=== PATIENT | male | born 1965 | race Caucasian/White ===

== ENCOUNTER 2019-11-25 10:15 | Inpatient (IN) | payer OTHER ==
[2019-11-25 11:14] VITALS: BMI 24.9
--- NOTE | 2019-11-25 11:50 | HP ---
CIWA Score Nausea/Vomitin Muscle Tremors: 3 Anxiety: 3 Agitation: 3 Paroxysmal Sweats: 1-Minimal Palms Moist Orientation: 0-Oriented Tacttile Disturbances: 1-Very Mild Itch/Numbness Auditory Disturbances: 0-None Visual Disturbances: 0-None Headache: 2-Mild CIWA-Ar Total Score: 15 - Admission Criteria OASAS Guidelines: Admission for Medically Managed Detox: Requires at least one of the followin. CIWA greater than 12 2. Seizures within the past 24 hours 3. Delirium tremens within the past 24 hours 4. Hallucinations within the past 24 hours 5. Acute intervention needed for co occurring medical disorder 6. Acute intervention needed for co occurring psychiatric disorder 7. Severe withdrawal that cannot be handled at a lower level of care (continued vomiting, continued diarrhea, abnormal vital signs) requiring intravenous medication and/or fluids 8. 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 Musculoskeletal: Yes: Other (arthritis left knee sciatica left fell from height 3rd floor in 2914 fx both pelvis ,left elbow in 2014 [facility]) Additional Past Medical History: fell from height in 2004 sustained fx both pelvis,left elbow - Smoking History Smoking history: Never smoked - Alcohol/Substance Use Hx Alcohol Use: Yes - Social History Usual Living Arrangement: Yes: Other (homeless) ADL: Support Services Occupation: unemployed History of Recent Travel: No Admission ROS S - HPI Chief Complaint: i need help to stop drinking alcohol,cocaine and marijuana Allergies/Adverse Reactions: Allergies Allergy/AdvReac Type Severity Reaction Status Date / Time lactose AdvReac gas Verified 11/25/19 10:57 History of Present Illness: this 54 years old male with alcohol dependence,cocaine,marijuana dependence, seeking detox,withdrawal symptom, multiple admissions in detox last detox 09/18 [facility] syncope alcohol related no seizure no smoking fell from height third floor in 2014 sustained multiple fx both pelvis,left elbow longest period of sobriety 6 years weight loss neuropathy sciatica anxiety,insomnia, plan for rehab after detox Exam Limitations: No Limitations - Ebola screening Have you traveled outside of the country in the last 21 days: No Have you had contact with anyone from an Ebola affected area: No Do you have a fever: No - Review of Systems Constitutional: Loss of Appetite, Night Sweats, Changes in sleep, Weakness, Unintentional Wgt. Loss EENT: reports: Tearing, Nose Congestion Respiratory: reports: No Symptoms reported Cardiac: reports: No Symptoms Reported GI: reports: Nausea, Poor Appetite, Indigestion, Abdominal cramping Musculoskeletal: reports: Back Pain, Muscle Pain Integumentary: reports: Dryness Neuro: reports: Headache, Tremors Endocrine: reports: No Symptoms Reported Hematology: reports: No Symptoms Reported Psychiatric: reports: No Sypmtoms Reported, Judgement Intact, Mood/Affect Appropiate, Orientated x3, Anxious (insomnia) Patient History - Patient Medical History Hx Anemia: No Hx Asthma: No Hx Chronic Obstructive Pulmonary Disease (COPD): No Hx Cancer: No Hx Cardiac Disorders: No Hx Congestive Heart Failure: No Hx Hypertension: No Hx Hypercholesterolemia: No Hx Pacemaker: No HX Cerebrovascular Accident: No Hx Seizures: No Hx Dementia: No Hx Diabetes: No Hx Gastrointestinal Disorders: No Hx Liver Disease: No Hx Genitourinary Disorders: No Hx Sexually Transmitted Disorders: No Hx Renal Disease (ESRD): No Hx Thyroid Disease: No Hx Human Immunodeficiency Virus (HIV): No (09/18 negative) Hx Hepatitis C: No Hx Depression: Yes (INSOMNIA,ANXIETY AND DEPRESSION) Hx Suicide Attempt: No Hx Bipolar Disorder: No Hx Schizophrenia: No Other Medical History: no suicidal,no homicial,fell from height in 09/18 - Patient Surgical History Past Surgical History: Yes Hx Neurologic Surgery: No Hx Cataract Extraction: No Hx Cardiac Surgery: No Hx Lung Surgery: No Hx Breast Surgery: No Hx Breast Biopsy: No Hx Abdominal Surgery: No Hx Appendectomy: No Hx Cholecystectomy: No Hx Genitourinary Surgery: No Hx Section: No Hx Orthopedic Surgery: Yes (SUREGRY FOR FX LEFT HUMERUS AND LEFT FOREAMS FELL FROM 3RD FLOOR) Other Surgical History: FX OF BOTH PELVIS IN 1994 ,FX OF LEFT FOREARM,FX OF LEFT HUMERUS - PPD History Previous Implant?: Yes Documented Results: Negative w/o proof Implanted On Prior R Admission?: Yes Date: 08/03/14 PPD to be Administered?: Yes - Smoking Cessation Smoking history: Never smoked Cigars Per Day: 0 Hx Chewing Tobacco Use: No - Substance & Tx. History Hx Alcohol Use: Yes Hx Substance Use: Yes Substance Use Type: Alcohol, Marijuana Hx Substance Use Treatment: Yes (09/18 [facility] ) - Substances abused Alcohol Substance route: Oral Frequency: Daily Amount used: 5-6 24oz beers & 1 pint of vodka Age of first use: Date of last use: 11/25/19 Marijuana/Hashish Substance route: Smoking Frequency: 3-6 times per week Amount used: 2-3 joints Age of first use: 20 Date of last use: 11/24/19 Admission Physical Exam [facility] - Vital Signs Vital Signs: Vital Signs - 24 hr 11/25/19 10:57 Temperature 97.0 F L Pulse Rate 76 Respiratory 18 Rate Blood Pressure 123/77 - Physical General Appearance: Yes: Moderate Distress, Tremorous, Irritable, Sweating HEENTM: Yes: Normal ENT Inspection, TORREY, Pharynx Normal Respiratory: Yes: Within Normal Limits, Lungs Clear, Normal Breath Sounds Neck: Yes: Within Normal Limits, Supple, Trachea in good position Breast: Yes: Within Normal Limits Cardiology: Yes: Within Normal Limits, Regular Rhythm, Regular Rate, S1, S2 Abdominal: Yes: Within Normal Limits, Normal Bowel Sounds, Non Tender, Flat Genitourinary: Yes: Within Normal Limits Back: Yes: Within Normal Limits Musculoskeletal: Yes: full range of Motion, Back pain, Muscle Pain Extremities: Yes: Tremors, Other (fx both pelvis scar left elbow withdeformity) 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: Yes: 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 intact, Fully Oriented, Alert, Motor Strength 5/5 Integumentary: Yes: Dry Lymphatic: Yes: Within Normal Limits - Diagnostic (1) Alcohol dependence with uncomplicated withdrawal Current Visit: Yes Status: Acute (2) Cannabis dependence Current Visit: No Status: Acute (3) Insomnia secondary to depression with anxiety Current Visit: No Status: Acute (4) S/P MULTIPLE FX BOTH PELVIS,LEFT FOREARM Current Visit: No Status: Acute (5) S/P SURGERY OF LEFT FOREARM FX Current Visit: No Status: Acute (6) Syncope Current Visit: No Status: Acute (7) Weight decreased Current Visit: No Status: Acute (8) Left sided sciatica Current Visit: Yes Status: Acute (9) Arthritis Current Visit: Yes Status: Acute Cleared for Admission [facility] - Detox or Rehab [facility] Level of Care: Medically Managed Detox Regimen/Protocol: Valium Inpatient Rehab Admission - Rehab Decision to Admit Inpatient rehab admission?: No
[2019-11-25] MEDS ORDERED: METHOCARBAMOL 500 MG TABLET PO PRN (12:09)
[2019-11-25] MEDS ORDERED: ACETAMINOPHEN 325 MG TABLET (FP) PO PRN ×2 (12:09)
[2019-11-25] MEDS ORDERED: hydrOXYzine PAMOATE 25 MG CAPSULE (FP) PO PRN (12:09)
[2019-11-25] MEDS ORDERED: MAGNESIUM HYDROX 2400MG/30ML ORAL SUSPENSION 30 ML CUP PO PRN (12:09)
[2019-11-25] MEDS ORDERED: BISMUTH SUBSALICYLATE 524 MG/30 ML UD PO PRN (12:09)
[2019-11-25] MEDS ORDERED: MAG HYDROX/AL HYDROX/SIMETH 30 ML UNIT-DOSE CUP PO PRN (12:09)
[2019-11-25] MEDS ORDERED: MAGNESIUM CITRATE 300 ML BOTTLE PO PRN (12:09)
[2019-11-25] MEDS ORDERED: MENTHOL/PHENOL 1 EACH UD MM PRN (12:09)
--- NOTE | 2019-11-25 12:29 | PN ---
[facility] Progress Note Note: confimed by pharmacist patient is taking gabapentin 900 mgs po tid last filled 11/21/19
[2019-11-25] MEDS: diazePAM 5 MG TABLET PO SCH ×2 (14:02→22:41)
[2019-11-25] MEDS: GABAPENTIN 300 MG CAPSULE PO SCH ×2 (14:02→22:41)
[2019-11-25 16:02] LABS: HEMATOCRIT 39.7 % (35.4-49); HEMOGLOBIN 13.3 GM/dL (11.7-16.9); MCH 32.4 pg (25.7-33.7); MCHC 33.4 g/dl (32.0-35.9); MEAN PLT VOLUME 10.5 fl (7.5-11.1); PLATELET COUNT 115 K/MM3 (134-434); WHITE BLOOD COUNT 4.6 K/mm3 (4.0-10.0)
[2019-11-25 16:18] LABS: ALBUMIN 3.2 g/dl (3.4-5.0); BILIRUBIN,TOTAL 0.6 mg/dL (0.2-1); BLOOD UREA NITROGEN 13.6 mg/dL (7-18); CALCIUM 8.3 mg/dL (8.5-10.1); POTASSIUM 4.1 mmol/L (3.5-5.1); TOT PROT 8.2 g/dl (6.4-8.2)
[2019-11-25] MEDS: THIAMINE HCL 100 MG TABLET (FP) PO SCH (22:41)
[2019-11-25] MEDS: MELATONIN 5 MG TABLETS PO PRN (22:41)
[2019-11-26] MEDS: GABAPENTIN 300 MG CAPSULE PO SCH ×3 (05:43→21:36)
[2019-11-26] MEDS: diazePAM 5 MG TABLET PO SCH ×3 (05:43→21:36)
[2019-11-26] MEDS: PRENATAL VITAMINS W/ FOLIC ACID TABLET (FP) PO SCH (09:30)
[2019-11-26] MEDS: diazePAM 5 MG TABLET PO PRN (09:30)
--- NOTE | 2019-11-26 11:50 | PN ---
[facility] CIWA - CIWA Score Nausea/Vomitin-No Nausea/No Vomiting Muscle Tremors: 2 Anxiety: 3 Agitation: 0-Normal Activity Paroxysmal Sweats: 3 Orientation: 0-Oriented Tacttile Disturbances: 1-Very Mild Itch/Numbness Auditory Disturbances: 0-None Visual Disturbances: 0-None Headache: 2-Mild CIWA-Ar Total Score: 11 S Progress Note (SOAP) Subjective: c/o anxiety, headache, and muscle aches. Objective: 11/26/19 11:50 Vital Signs 11/26/19 11/26/19 06:15 09:07 Temperature 99.3 F 98.9 F Pulse Rate 78 93 H Respiratory 16 18 Rate Blood Pressure 122/76 127/81 Laboratory Last Values WBC 4.6 K/mm3 (4.0-10.0) 11/25/19 12:20 RBC 4.10 M/mm3 (4.00-5.60) 11/25/19 12:20 Hgb 13.3 GM/dL (11.7-16.9) 11/25/19 12:20 Hct 39.7 % (35.4-49) 11/25/19 12:20 MCV 97.0 fl (80-96) H 11/25/19 12:20 MCH 32.4 pg (25.7-33.7) 11/25/19 12:20 MCHC 33.4 g/dl (32.0-35.9) 11/25/19 12:20 RDW 14.0 % (11.9-15.9) 11/25/19 12:20 Plt Count 115 K/MM3 (134-434) L D 11/25/19 12:20 MPV 10.5 fl (7.5-11.1) 11/25/19 12:20 Sodium 133 mmol/L (136-145) L 11/25/19 12:20 Potassium 4.1 mmol/L (3.5-5.1) 11/25/19 12:20 Chloride 100 mmol/L (98-107) 11/25/19 12:20 Carbon Dioxide 27 mmol/L (21-32) 11/25/19 12:20 Anion Gap 7 MMOL/L (8-16) L 11/25/19 12:20 BUN 13.6 mg/dL (7-18) 11/25/19 12:20 Creatinine 1.0 mg/dL (0.55-1.3) 11/25/19 12:20 Est GFR (CKD-EPI)AfAm 99.15 11/25/19 12:20 Est GFR (CKD-EPI)NonAf 85.55 11/25/19 12:20 Random Glucose 193 mg/dL (74-106) H 11/25/19 12:20 Calcium 8.3 mg/dL (8.5-10.1) L 11/25/19 12:20 Total Bilirubin 0.6 mg/dL (0.2-1) 11/25/19 12:20 AST 278 U/L (15-37) H 11/25/19 12:20 ALT 182 U/L (13-61) H 11/25/19 12:20 Alkaline Phosphatase 155 U/L (45-117) H 11/25/19 12:20 Total Protein 8.2 g/dl (6.4-8.2) 11/25/19 12:20 Albumin 3.2 g/dl (3.4-5.0) L 11/25/19 12:20 RPR Titer Nonreactive (NONREACTIVE) 11/25/19 12:20 HIV 1&2 Antibody Screen Preliminary positive A 11/25/19 12:20 HIV P24 Antigen Negative 11/25/19 12:20 Labs noted. Assessment: 11/26/19 11:50 AOX3, in no acute respiratory distress. Full ROM, ambulating in the unit. Withdrawal symptoms. Plan: continue detox.
[2019-11-26] MEDS ORDERED: FLU VACCINE QUAD 60 MCG/0.5 ML (MDV 19-20) IM ONE (12:00)
--- NOTE | 2019-11-26 13:29 | EKG ---
Test Reason : Blood Pressure : / mmHG Vent. Rate : 084 BPM Atrial Rate : 084 BPM P-R Int : 142 ms QRS Dur : 086 ms QT Int : 354 ms P-R-T Axes : 066 056 049 degrees QTc Int : 418 ms POOR DATA QUALITY, INTERPRETATION MAY BE ADVERSELY AFFECTED NORMAL SINUS RHYTHM NORMAL ECG NO PREVIOUS ECGS AVAILABLE Confirmed by GHAZAL MEDINA MD ([id number]) on 11/26/2019 1:29:10 PM Referred By: Confirmed By:GHAZAL MEDINA MD
[2019-11-26] MEDS: MELATONIN 5 MG TABLETS PO PRN (21:36)
[2019-11-26] MEDS: THIAMINE HCL 100 MG TABLET (FP) PO SCH (22:24)
[2019-11-27] MEDS: GABAPENTIN 300 MG CAPSULE PO SCH ×3 (05:12→22:01)
[2019-11-27] MEDS: diazePAM 5 MG TABLET PO SCH ×2 (05:13→17:04)
[2019-11-27] MEDS: PRENATAL VITAMINS W/ FOLIC ACID TABLET (FP) PO SCH (10:31)
[2019-11-27] MEDS: IBUPROFEN 400 MG TABLET (FP) PO PRN (10:31)
[2019-11-27] MEDS: diazePAM 5 MG TABLET PO PRN ×3 (10:34→22:02)
--- NOTE | 2019-11-27 10:52 | PN ---
[facility] CIWA - CIWA Score Nausea/Vomitin-No Nausea/No Vomiting Muscle Tremors: None Anxiety: 2 Agitation: 0-Normal Activity Paroxysmal Sweats: 2 Orientation: 0-Oriented Tacttile Disturbances: 0-None Auditory Disturbances: 0-None Visual Disturbances: 0-None Headache: 1-Very Mild CIWA-Ar Total Score: 5 S Progress Note (SOAP) Subjective: c/o mild withdrawal symptoms. Objective: 11/27/19 10:53 Vital Signs 11/27/19 11/27/19 11/27/19 03:30 06:44 09:18 Temperature 99.0 F 96.9 F L Pulse Rate 69 106 H Respiratory 18 18 18 Rate Blood Pressure 109/68 123/75 Laboratory Last Values WBC 4.6 K/mm3 (4.0-10.0) 11/25/19 12:20 RBC 4.10 M/mm3 (4.00-5.60) 11/25/19 12:20 Hgb 13.3 GM/dL (11.7-16.9) 11/25/19 12:20 Hct 39.7 % (35.4-49) 11/25/19 12:20 MCV 97.0 fl (80-96) H 11/25/19 12:20 MCH 32.4 pg (25.7-33.7) 11/25/19 12:20 MCHC 33.4 g/dl (32.0-35.9) 11/25/19 12:20 RDW 14.0 % (11.9-15.9) 11/25/19 12:20 Plt Count 115 K/MM3 (134-434) L D 11/25/19 12:20 MPV 10.5 fl (7.5-11.1) 11/25/19 12:20 Sodium 133 mmol/L (136-145) L 11/25/19 12:20 Potassium 4.1 mmol/L (3.5-5.1) 11/25/19 12:20 Chloride 100 mmol/L (98-107) 11/25/19 12:20 Carbon Dioxide 27 mmol/L (21-32) 11/25/19 12:20 Anion Gap 7 MMOL/L (8-16) L 11/25/19 12:20 BUN 13.6 mg/dL (7-18) 11/25/19 12:20 Creatinine 1.0 mg/dL (0.55-1.3) 11/25/19 12:20 Est GFR (CKD-EPI)AfAm 99.15 11/25/19 12:20 Est GFR (CKD-EPI)NonAf 85.55 11/25/19 12:20 Random Glucose 193 mg/dL (74-106) H 11/25/19 12:20 Calcium 8.3 mg/dL (8.5-10.1) L 11/25/19 12:20 Total Bilirubin 0.6 mg/dL (0.2-1) 11/25/19 12:20 AST 278 U/L (15-37) H 11/25/19 12:20 ALT 182 U/L (13-61) H 11/25/19 12:20 Alkaline Phosphatase 155 U/L (45-117) H 11/25/19 12:20 Total Protein 8.2 g/dl (6.4-8.2) 11/25/19 12:20 Albumin 3.2 g/dl (3.4-5.0) L 11/25/19 12:20 RPR Titer Nonreactive (NONREACTIVE) 11/25/19 12:20 HIV 1&2 Antibody Screen Preliminary positive A 11/25/19 12:20 HIV P24 Antigen Negative 11/25/19 12:20 Confirmatory HIV test result still pending. Assessment: 11/27/19 10:54 AOx3, in no acute respiratory distress. Full rom, ambulating in the unit. Mild Withdrawal symptoms. For d/c tomorrow. Plan: continue detox. D/C in AM.
[2019-11-27 19:40] LABS: PH,URINE 5.5 (5.0-8.0); URINE APPEARANCE CLOUDY; URINE BILIRUBIN NEGATIVE (NEGATIVE); URINE COLOR DK YELLOW; URINE GLUCOSE (UA) NEGATIVE (NEGATIVE); URINE KETONE TRACE (NEGATIVE); URINE LEUK ESTERASE NEGATIVE (NEGATIVE); URINE NITRITE NEGATIVE (NEGATIVE); URINE PROTEIN NEGATIVE (NEGATIVE)
[2019-11-27] MEDS: MELATONIN 5 MG TABLETS PO PRN (22:01)
[2019-11-27] MEDS: THIAMINE HCL 100 MG TABLET (FP) PO SCH (22:01)
[2019-11-28] MEDS: IBUPROFEN 400 MG TABLET (FP) PO PRN (05:40)
[2019-11-28] MEDS: GABAPENTIN 300 MG CAPSULE PO SCH ×2 (05:44→13:35)
[2019-11-28] MEDS ORDERED: diazePAM 5 MG TABLET PO ONE (06:00)
[2019-11-28] MEDS: diazePAM 5 MG TABLET PO PRN (08:43)
--- NOTE | 2019-11-28 10:09 | DS ---
[facility] Detox Discharge Summary Admission Date: 11/25/19 Discharge Date: 11/28/19 - History Present History: Alcohol Dependence Additional Comments: 54 years old male admitted on 11/25/19 for alcohol withdrawal sx management treated with valium detox regimen patient tolerated well alert oriented x 3 cardiac s1s2 regular rate rhythm respiratory clear lungs bilaterally on auscultation skin warm and dry - Physical Exam Results Vital Signs: Vital Signs Temperature 97.0 F L 11/28/19 09:05 Pulse Rate 108 H 11/28/19 09:05 Respiratory Rate 20 11/28/19 09:05 Blood Pressure 132/84 11/28/19 09:05 O2 Sat by Pulse Oximetry (%) Pertinent Admission Physical Exam Findings: alcohol withdrawal Laboratory Last Values WBC 4.6 K/mm3 (4.0-10.0) 11/25/19 12:20 RBC 4.10 M/mm3 (4.00-5.60) 11/25/19 12:20 Hgb 13.3 GM/dL (11.7-16.9) 11/25/19 12:20 Hct 39.7 % (35.4-49) 11/25/19 12:20 MCV 97.0 fl (80-96) H 11/25/19 12:20 MCH 32.4 pg (25.7-33.7) 11/25/19 12:20 MCHC 33.4 g/dl (32.0-35.9) 11/25/19 12:20 RDW 14.0 % (11.9-15.9) 11/25/19 12:20 Plt Count 115 K/MM3 (134-434) L D 11/25/19 12:20 MPV 10.5 fl (7.5-11.1) 11/25/19 12:20 Sodium 133 mmol/L (136-145) L 11/25/19 12:20 Potassium 4.1 mmol/L (3.5-5.1) 11/25/19 12:20 Chloride 100 mmol/L (98-107) 11/25/19 12:20 Carbon Dioxide 27 mmol/L (21-32) 11/25/19 12:20 Anion Gap 7 MMOL/L (8-16) L 11/25/19 12:20 BUN 13.6 mg/dL (7-18) 11/25/19 12:20 Creatinine 1.0 mg/dL (0.55-1.3) 11/25/19 12:20 Est GFR (CKD-EPI)AfAm 99.15 11/25/19 12:20 Est GFR (CKD-EPI)NonAf 85.55 11/25/19 12:20 Random Glucose 193 mg/dL (74-106) H 11/25/19 12:20 Calcium 8.3 mg/dL (8.5-10.1) L 11/25/19 12:20 Total Bilirubin 0.6 mg/dL (0.2-1) 11/25/19 12:20 AST 278 U/L (15-37) H 11/25/19 12:20 ALT 182 U/L (13-61) H 11/25/19 12:20 Alkaline Phosphatase 155 U/L (45-117) H 11/25/19 12:20 Total Protein 8.2 g/dl (6.4-8.2) 11/25/19 12:20 Albumin 3.2 g/dl (3.4-5.0) L 11/25/19 12:20 Urine Color Dk yellow 11/27/19 18:00 Urine Appearance Cloudy 11/27/19 18:00 Urine pH 5.5 (5.0-8.0) 11/27/19 18:00 Ur Specific [place] 1.027 (1.010-1.035) 11/27/19 18:00 Urine Protein Negative (NEGATIVE) 11/27/19 18:00 Urine Glucose (UA) Negative (NEGATIVE) 11/27/19 18:00 Urine Ketones Trace (NEGATIVE) H 11/27/19 18:00 Urine Blood Negative (NEGATIVE) 11/27/19 18:00 Urine Nitrite Negative (NEGATIVE) 11/27/19 18:00 Urine Bilirubin Negative (NEGATIVE) 11/27/19 18:00 Urine Urobilinogen 1.0 mg/dL (0.2-1.0) 11/27/19 18:00 Ur Leukocyte Esterase Negative (NEGATIVE) 11/27/19 18:00 RPR Titer Nonreactive (NONREACTIVE) 11/25/19 12:20 HIV-1 Antibody Positive (Negative) H 11/25/19 12:20 HIV Ag/Ab Interpret Hiv-1 positive (.) 11/25/19 12:20 HIV-2 Antibody Negative (Negative) 11/25/19 12:20 HIV 1&2 Ag/Ab, 4th Gen Reactive (Non Reactive) H 11/25/19 12:20 HIV 1&2 Antibody Screen Preliminary positive A 11/25/19 12:20 HIV P24 Antigen Negative 11/25/19 12:20 lab noted patient has been informed by the providers about hiv-1antibody positive hiv ag/ ab interpret positive hiv 1&2 ag/ab 4th gen reactive hiv 1&2 antibody screen positive A patient will be consulted by the hiv specialist for newly diagnosed hiv follow up care that HIV negative "two months" ago - Treatment Hospital Course: Detox Protocol Followed, Detoxed Safely, Responded well, Discharged Condition Good, Rehab Referral Accepted Patient has Accepted a Rehab Referral to: [facility] - Medication Discharge Medications: Ambulatory Orders Gabapentin 900 mg PO TID 11/25/19 - Diagnosis (1) HIV (human immunodeficiency virus infection) Current Visit: Yes Status: Acute Qualifiers: HIV symptom status: asymptomatic Qualified Code(s): Z21 - Asymptomatic human immunodeficiency virus [HIV] infection status (2) Alcohol dependence with uncomplicated withdrawal Current Visit: Yes Status: Acute - AMA Did Patient Leave Against Medical Advice: No CIWA Score - CIWA Score Nausea/Vomitin-No Nausea/No Vomiting Muscle Tremors: None Anxiety: 1-Mildly Anxious Agitation: 0-Normal Activity Paroxysmal Sweats: 1-Minimal Palms Moist Orientation: 0-Oriented Tacttile Disturbances: 0-None Auditory Disturbances: 0-None Visual Disturbances: 0-None Headache: 0-None Present CIWA-Ar Total Score: 2
[2019-11-28] MEDS: PRENATAL VITAMINS W/ FOLIC ACID TABLET (FP) PO SCH (10:27)
[2019-11-28 16:40] VITALS: BP 118/76; PULSE 75; TEMP 96.5
== END 2019-11-28 17:47 | disposition other institution (70) | DRG 775 ==
LOC: YASAS 10:15 → Y3N 12:59
PROVIDERS: ADMIT Allergy & Immunology; ATTEND Allergy & Immunology
PROC: HZ2ZZZZ Detoxification Services for Substance Abuse Treatment (ICD-10-PCS; principal; 2019-11-25)
DX: F10.230 Alcohol dependence with withdrawal, uncomplicated (principal); F12.20 Cannabis dependence, uncomplicated; F51.05 Insomnia due to other mental disorder; Z21 Asymptomatic human immunodeficiency virus [HIV] infection status; R63.4 Abnormal weight loss; M54.32 Sciatica, left side; M19.90 Unspecified osteoarthritis, unspecified site
CPT/HCPCS: 36415; 80053; 81003; 85027; 86593; 87389; 93005; 93010; G0008; Q2036

== ENCOUNTER 2019-11-28 17:50 | Inpatient (IN) | payer OTHER ==
--- NOTE | 2019-11-28 10:21 | HP ---
[facility] Rehab Assess/Revision - Admission History Admitted to Rehab from: [facility] Date of Admission to Rehab: 11/28/19 - Findings Detox History & Physical reviewed: Yes Concur with findings: Yes Comments/Additional Findings: tranferred from detox to rehab admission as per protocol. newly diagnosed of hiv. requests hiv ID specialist counsultation Inpatient Rehab Admission - Rehab Decision to Admit Inpatient rehab admission?: Yes - Initial Determination Are CD services needed?: Yes Free of communicable disease: Yes Not in need of hospitalization: Yes - Rehab Admission Criteria Previous failed treatment: Yes Poor recovery environment: Yes Comorbidities: Yes Lacks judgement: Yes Patient is meeting Inpatient Rehab admission criteria:: Yes
[~2019-11-28 17:50] MED LIST: LOPERAMIDE HCL 2 MG CAPSULE PO PRN; MAGNESIUM CITRATE 300 ML BOTTLE PO PRN; MAGNESIUM HYDROX 2400MG/30ML ORAL SUSPENSION 30 ML CUP PO PRN; MENTHOL/PHENOL 1 EACH UD MM PRN; P-EPHED 60MG/TRIPROLIDI 2.5MG TABLET PO PRN; guaiFENesin 200 MG/10 ML 10 ML UNIT-DOSE CUPS PO PRN
[2019-11-28] MEDS: GABAPENTIN 300 MG CAPSULE (FP) PO SCH ×3 (18:30→21:16)
[2019-11-28] MEDS: THIAMINE HCL 100 MG TABLET (FP) PO SCH (21:13)
[2019-11-28] MEDS: MELATONIN 5 MG TABLETS PO PRN ×2 (21:13→21:16)
[2019-11-28] MEDS: IBUPROFEN 400 MG TABLET (FP) PO PRN (21:17)
[2019-11-29] MEDS: GABAPENTIN 300 MG CAPSULE (FP) PO SCH ×3 (06:15→22:04)
[2019-11-29] MEDS: PRENATAL VITAMINS W/ FOLIC ACID TABLET (FP) PO SCH (09:53)
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
[2019-11-29] MEDS: IBUPROFEN 400 MG TABLET (FP) PO PRN (13:34)
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
[2019-11-29] MEDS: hydrOXYzine PAMOATE 50 MG CAPSULE (FP) PO PRN ×2 (16:32→22:20)
[2019-11-29] MEDS: THIAMINE HCL 100 MG TABLET (FP) PO SCH (22:04)
[2019-11-29] MEDS: TOLNAFTATE 1% CREAM 15 GM TUBE TP SCH (22:08)
[2019-11-30] MEDS: GABAPENTIN 300 MG CAPSULE (FP) PO SCH ×3 (06:02→21:36)
[2019-11-30] MEDS: hydrOXYzine PAMOATE 50 MG CAPSULE (FP) PO PRN ×2 (06:02→19:37)
[2019-11-30] MEDS: PRENATAL VITAMINS W/ FOLIC ACID TABLET (FP) PO SCH (09:47)
[2019-11-30] MEDS: ACETAMINOPHEN 325 MG TABLET (FP) PO PRN (09:48)
[2019-11-30] MEDS: TOLNAFTATE 1% CREAM 15 GM TUBE TP SCH ×2 (09:49→21:37)
--- NOTE | 2019-11-30 11:10 | PN ---
[facility] Progress Note Note: Patient reports sleeping poorly and requests to be ordered Melatonin 10 mg/hs prn
[2019-11-30 12:17] LABS: BLOOD UREA NITROGEN 12.3 mg/dL (7-18); CALCIUM 9.2 mg/dL (8.5-10.1); CREATININE 0.8 mg/dL (0.55-1.3); POTASSIUM 4.4 mmol/L (3.5-5.1)
--- NOTE | 2019-11-30 13:17 | PN ---
[facility] Progress Note Note: S: d/w pt again his positive HIV results- states he has had multiple encounters with multiple different partners. Pt states he has never had a positive HIV result. Pt states he is homeless. His lives in [facility] [place] and has not spoken to her in several weeks. Pt states he goes to [place] [facility] [address] [place] for primary care - pt states he will f/u with these providers. Escorted pt to meet with counselor to process this information. Laboratory Tests 11/29/19 11/30/19 08:36 07:00 Sodium 140 Potassium 4.4 Chloride 107 Carbon Dioxide 26 Anion Gap 7 L BUN 12.3 Creatinine 0.8 Est GFR (CKD-EPI)AfAm 118.20 Est GFR (CKD-EPI)NonAf 101.99 Random Glucose 84 Calcium 9.2 AST 105 H HIV 1 Ab pos 4th gen HIV confirm test pos a/p: HIV pos-d/w pt timecourse of HIV- the need for regular medical f/u, regular blood testing and available medications. pt to meet with counselor now d/c plan to include HIV ongoing care
[2019-11-30] MEDS: IBUPROFEN 400 MG TABLET (FP) PO PRN (14:50)
[2019-11-30] MEDS: MAG HYDROX/AL HYDROX/SIMETH 30 ML UNIT-DOSE CUP PO PRN (14:50)
[2019-11-30] MEDS: THIAMINE HCL 100 MG TABLET (FP) PO SCH (21:36)
[2019-11-30] MEDS: MELATONIN 5 MG TABLETS PO PRN (21:36)
[2019-12-01] MEDS: GABAPENTIN 300 MG CAPSULE (FP) PO SCH ×3 (06:13→21:10)
[2019-12-01] MEDS: IBUPROFEN 400 MG TABLET (FP) PO PRN ×2 (07:13→20:17)
--- NOTE | 2019-12-01 09:38 | PN ---
[facility] Progress Note Note: PATIENT C/O INGROWN HAIR TO LEFT SIDE OF [place]. SMALL REDDENED PATCH NOTED. NO OPEN AREAS OR DISCHARGE PRESENT. WILL ORDER BACITRACIN OINTMENT BID X ONE WEEK . Vital Signs Temperature 97.8 F 12/01/19 06:45 Pulse Rate 112 H 12/01/19 06:45 Respiratory Rate 20 12/01/19 06:45 Blood Pressure 146/98 12/01/19 06:45 O2 Sat by Pulse Oximetry (%)
[2019-12-01] MEDS: PRENATAL VITAMINS W/ FOLIC ACID TABLET (FP) PO SCH (09:45)
[2019-12-01] MEDS: TOLNAFTATE 1% CREAM 15 GM TUBE TP SCH ×2 (09:46→21:08)
[2019-12-01] MEDS: BACITRACIN 15 GM TUBE TOPICAL OINTMENT TP SCH ×2 (12:09→21:10)
[2019-12-01] MEDS: hydrOXYzine PAMOATE 50 MG CAPSULE (FP) PO PRN ×2 (12:09→21:13)
[2019-12-01] MEDS: THIAMINE HCL 100 MG TABLET (FP) PO SCH (21:10)
[2019-12-01] MEDS: ACETAMINOPHEN 325 MG TABLET (FP) PO PRN (21:11)
[2019-12-02] MEDS: GABAPENTIN 300 MG CAPSULE (FP) PO SCH ×3 (06:20→21:04)
[2019-12-02] MEDS: IBUPROFEN 400 MG TABLET (FP) PO PRN ×3 (06:20→21:07)
[2019-12-02] MEDS: hydrOXYzine PAMOATE 50 MG CAPSULE (FP) PO PRN ×3 (09:47→21:06)
[2019-12-02] MEDS: PRENATAL VITAMINS W/ FOLIC ACID TABLET (FP) PO SCH (09:47)
[2019-12-02] MEDS: ACETAMINOPHEN 325 MG TABLET (FP) PO PRN ×2 (09:47→16:36)
[2019-12-02] MEDS: TOLNAFTATE 1% CREAM 15 GM TUBE TP SCH ×2 (09:48→21:05)
[2019-12-02] MEDS: BACITRACIN 15 GM TUBE TOPICAL OINTMENT TP SCH ×2 (09:48→21:04)
[2019-12-02] MEDS: MELATONIN 5 MG TABLETS PO PRN (21:06)
[2019-12-02] MEDS: THIAMINE HCL 100 MG TABLET (FP) PO SCH (21:06)
[2019-12-03] MEDS: IBUPROFEN 400 MG TABLET (FP) PO PRN ×3 (06:08→21:42)
[2019-12-03] MEDS: GABAPENTIN 300 MG CAPSULE (FP) PO SCH ×3 (06:08→21:41)
[2019-12-03] MEDS: hydrOXYzine PAMOATE 50 MG CAPSULE (FP) PO PRN ×2 (10:11→16:31)
[2019-12-03] MEDS: ACETAMINOPHEN 325 MG TABLET (FP) PO PRN ×2 (10:12→16:31)
[2019-12-03] MEDS: PRENATAL VITAMINS W/ FOLIC ACID TABLET (FP) PO SCH (10:14)
[2019-12-03] MEDS: TOLNAFTATE 1% CREAM 15 GM TUBE TP SCH ×2 (10:14→21:41)
[2019-12-03] MEDS: BACITRACIN 15 GM TUBE TOPICAL OINTMENT TP SCH ×2 (10:14→21:41)
[2019-12-03 15:41] LABS: ALBUMIN 3.4 g/dl (3.4-5.0); BILIRUBIN,TOTAL 0.2 mg/dL (0.2-1); POTASSIUM 4.5 mmol/L (3.5-5.1); TOT PROT 8.4 g/dl (6.4-8.2)
[2019-12-03] MEDS: MELATONIN 5 MG TABLETS PO PRN (21:41)
[2019-12-03] MEDS: THIAMINE HCL 100 MG TABLET (FP) PO SCH (21:41)
[2019-12-04] MEDS: IBUPROFEN 400 MG TABLET (FP) PO PRN ×3 (06:10→21:22)
[2019-12-04] MEDS: GABAPENTIN 300 MG CAPSULE (FP) PO SCH ×3 (06:10→21:23)
[2019-12-04] MEDS: PRENATAL VITAMINS W/ FOLIC ACID TABLET (FP) PO SCH (09:45)
[2019-12-04] MEDS: ACETAMINOPHEN 325 MG TABLET (FP) PO PRN ×2 (09:46→16:59)
[2019-12-04] MEDS: hydrOXYzine PAMOATE 50 MG CAPSULE (FP) PO PRN ×3 (09:46→21:22)
[2019-12-04] MEDS: BACITRACIN 15 GM TUBE TOPICAL OINTMENT TP SCH ×2 (10:30→22:05)
[2019-12-04] MEDS: TOLNAFTATE 1% CREAM 15 GM TUBE TP SCH ×2 (10:31→22:05)
[2019-12-04] MEDS: MELATONIN 5 MG TABLETS PO PRN (21:23)
[2019-12-04] MEDS: THIAMINE HCL 100 MG TABLET (FP) PO SCH (21:23)
[2019-12-05] MEDS: IBUPROFEN 400 MG TABLET (FP) PO PRN ×3 (06:03→21:31)
[2019-12-05] MEDS: GABAPENTIN 300 MG CAPSULE (FP) PO SCH ×3 (06:03→21:29)
[2019-12-05] MEDS: BACITRACIN 15 GM TUBE TOPICAL OINTMENT TP SCH ×2 (09:53→21:29)
[2019-12-05] MEDS: TOLNAFTATE 1% CREAM 15 GM TUBE TP SCH ×2 (09:53→21:30)
[2019-12-05] MEDS: PRENATAL VITAMINS W/ FOLIC ACID TABLET (FP) PO SCH (09:53)
[2019-12-05] MEDS: hydrOXYzine PAMOATE 50 MG CAPSULE (FP) PO PRN ×3 (09:54→21:30)
[2019-12-05] MEDS: ACETAMINOPHEN 325 MG TABLET (FP) PO PRN (09:54)
[2019-12-05] MEDS: MELATONIN 5 MG TABLETS PO PRN (21:29)
[2019-12-05] MEDS: THIAMINE HCL 100 MG TABLET (FP) PO SCH (21:50)
[2019-12-06] MEDS: IBUPROFEN 400 MG TABLET (FP) PO PRN ×3 (06:19→21:02)
[2019-12-06] MEDS: GABAPENTIN 300 MG CAPSULE (FP) PO SCH ×3 (06:19→21:01)
[2019-12-06] MEDS: PRENATAL VITAMINS W/ FOLIC ACID TABLET (FP) PO SCH (10:46)
[2019-12-06] MEDS: TOLNAFTATE 1% CREAM 15 GM TUBE TP SCH ×2 (10:47→21:01)
[2019-12-06] MEDS: hydrOXYzine PAMOATE 50 MG CAPSULE (FP) PO PRN ×2 (10:48→21:02)
[2019-12-06] MEDS: ACETAMINOPHEN 325 MG TABLET (FP) PO PRN (10:48)
--- NOTE | 2019-12-06 16:14 | PN ---
S Progress Note Note: CONFIRMATORY HIV TEST POSITIVE. PROVIDER DISCUSSED RESULTS WITH PATIENT AND EXPLAINED IMPORTANCE OF STARTING TREATMENT UPON DISCHARGE. PATIENT IS FROM [facility] AND REFERRED TO [facility]: [address] [place] [address], [phone]. APPOINTMENT SCHEDULED FOR 12/14/2019. PATIENT DENIES ANY FEELING OF HOPELESSNESS, SI, HI AFTER BEING TOLD RESULTS. HE DOES REPORT HAVING MOOD SWINGS AT TIMES BUT HAS BEEN FEELING THIS WAY FOR DAYS. PSYCH CONSULT ORDERED. REHAB SERVICES AND SUPPORTIVE CARE CONTINUED. Vital Signs Temperature 97.6 F 12/06/19 06:09 Pulse Rate 94 H 12/06/19 06:09 Respiratory Rate 18 12/06/19 06:09 Blood Pressure 139/102 H 12/06/19 06:09 O2 Sat by Pulse Oximetry (%)
[2019-12-06] MEDS: BACITRACIN 15 GM TUBE TOPICAL OINTMENT TP SCH (18:01)
[2019-12-06] MEDS: MELATONIN 5 MG TABLETS PO PRN (21:01)
[2019-12-06] MEDS: THIAMINE HCL 100 MG TABLET (FP) PO SCH (21:01)
[2019-12-07] MEDS: GABAPENTIN 300 MG CAPSULE (FP) PO SCH ×3 (06:17→21:06)
[2019-12-07] MEDS: IBUPROFEN 400 MG TABLET (FP) PO PRN ×3 (06:17→21:08)
[2019-12-07] MEDS: BACITRACIN 15 GM TUBE TOPICAL OINTMENT TP SCH ×2 (06:18→18:20)
[2019-12-07] MEDS: ACETAMINOPHEN 325 MG TABLET (FP) PO PRN (10:54)
[2019-12-07] MEDS: hydrOXYzine PAMOATE 50 MG CAPSULE (FP) PO PRN ×2 (10:54→17:11)
[2019-12-07] MEDS: PRENATAL VITAMINS W/ FOLIC ACID TABLET (FP) PO SCH (10:55)
[2019-12-07] MEDS: TOLNAFTATE 1% CREAM 15 GM TUBE TP SCH ×2 (10:55→21:07)
--- NOTE | 2019-12-07 12:50 | PN ---
Psychiatric Progress Note Vital Signs: Vital Signs Period Temp Pulse Resp BP Sys/Tsang Pulse Ox Last 24 Hr 97.9 F 67 18-20 130/93 Date of Session: 12/07/19 Chief Complaint:: "I've been saba." HPI: Patient admitted to for alcohol, cocaine and cannabis dependence. Consultation ordered due to newly diagnosis of HIV. ROS: Patient is calm, cooperative, alert +oriented X3. Current Medications: Active Medications Generic Name Dose Route Start Last Admin Trade Name Freq PRN Reason Stop Dose Admin Acetaminophen 650 mg 11/28/19 10:21 12/07/19 10:54 Tylenol - PO 650 mg Q4H PRN Administration FEVER Al Hydroxide/Mg Hydroxide 30 ml 11/28/19 10:21 11/30/19 14:50 Mylanta Oral Suspension - PO 30 ml Q6H PRN Administration DYSPEPSIA Bacitracin 1 applic 12/06/19 18:00 12/07/19 06:18 Bacitracin - TP 12/13/19 17:59 1 applic BID@0600,1800 SOMMER Administration Eucalyptus/Menthol/Phenol/Sorbitol 1 each 11/28/19 10:21 Cepastat Lozenge - MM Q4H PRN SORE THROAT Gabapentin 900 mg 11/29/19 22:00 12/07/19 06:17 Neurontin - PO 900 mg TID SOMMER Administration Guaifenesin 10 ml 11/28/19 10:21 Robitussin - PO Q6H PRN COUGH Hydroxyzine Pamoate 50 mg 11/29/19 13:37 12/07/19 10:54 Vistaril - PO 50 mg Q4H PRN Administration ANXIETY Ibuprofen 400 mg 11/28/19 10:21 12/07/19 06:17 Motrin - PO 400 mg Q6H PRN Administration Pain level 4-6 Loperamide HCl 4 mg 11/28/19 10:21 Imodium - PO Q6H PRN DIARRHEA Magnesium Citrate 300 ml 11/28/19 10:21 Citroma - PO Q48H PRN CONSTIPATION Magnesium Hydroxide 30 ml 11/28/19 10:21 Milk Of Magnesia - PO DAILY PRN CONSTIPATION Melatonin 10 mg 11/30/19 11:07 12/06/19 21:01 Melatonin PO 10 mg HS PRN Administration INSOMNIA Multivit/Folic Acid/Iron 1 tab 11/29/19 10:00 12/07/19 10:55 Vitamins (Sjr) - PO 1 tab DAILY SOMMER Administration Pseudoephedrine/Triprolidine 1 combo 11/28/19 10:21 Actifed - PO TID PRN NASAL CONGESTION Suvorexant 10 mg 12/07/19 22:00 Belsomra PO 12/10/19 21:59 HS PRN INSOMNIA Thiamine HCl 100 mg 11/28/19 22:00 12/06/19 21:01 Vitamin B1 - PO 100 mg HS SOMMER Administration Tolnaftate 1 applic 11/29/19 22:00 12/07/19 10:55 Tinactin 1% Cream - TP 1 applic BID SOMMER Administration Medication(s) Change(s): Yes. Will add Belsomra 10mg HS PRN. Current Side Effect: No Lab tests ordered: No Lab tests reviewed: Yes Provider note:: Patient seen by Dr. Hi. Dr. Hi's note read and appreciated. Patient reports feeling saba since relapsing on alcohol and cocaine. Patient able to ventilate his feelings to provider. Patient reports feeling upset at how he was treated at [facility] [address]. Mr. Hunter reports past history of accepting trazodone, paxil, and vistaril. Patient newly diagnosed with HIV. 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 States his and daughter are his protective factors. Mr. Cintron is scheduled to be discharged on Friday12/13/18 and will be followed at the [facility] in [place]. At present patient reports difficuly sleeping. Will order Belsomra 10mg HS PRN. Benefits and side effects discussed. Verbal consent given. Total face to face time:: 35 Mental Status Exam - Mental Status Exam Alert and Oriented to: Time, Place, Person Cognitive Function: Good Patient Appearance: Well Groomed Mood: Withdrawn Affect: Appropriate Patient Behavior: Appropriate, Cooperative Speech Pattern: Appropriate Voice Loudness: Normal Thought Process: Goal Oriented Thought Disorder: Not Present Hallucinations: Denies Suicidal Ideation: Denies Homicidal Ideation: Denies Insight/Judgement: Poor Sleep: Poorly Appetite: Fair Muscle strength/Tone: Normal Gait/Station: Normal Psychiatric Treatment Plan - Problem List (1) Substance-induced sleep disorder Current Visit: Yes (2) Alcohol dependence Current Visit: Yes (3) Cocaine abuse Current Visit: Yes (4) Cannabis dependence Current Visit: Yes
[2019-12-07] MEDS: THIAMINE HCL 100 MG TABLET (FP) PO SCH (21:06)
[2019-12-07] MEDS: MELATONIN 5 MG TABLETS PO PRN (21:06)
[2019-12-07] MEDS: SUVOREXANT 10 MG TABLET PO PRN (21:08)
[2019-12-08] MEDS: GABAPENTIN 300 MG CAPSULE (FP) PO SCH ×3 (06:10→21:24)
[2019-12-08] MEDS: BACITRACIN 15 GM TUBE TOPICAL OINTMENT TP SCH ×2 (06:10→18:10)
[2019-12-08] MEDS: IBUPROFEN 400 MG TABLET (FP) PO PRN ×3 (06:11→21:25)
[2019-12-08] MEDS: PRENATAL VITAMINS W/ FOLIC ACID TABLET (FP) PO SCH (09:48)
[2019-12-08] MEDS: TOLNAFTATE 1% CREAM 15 GM TUBE TP SCH ×2 (09:49→21:26)
[2019-12-08] MEDS: ACETAMINOPHEN 325 MG TABLET (FP) PO PRN ×2 (09:50→16:56)
[2019-12-08] MEDS: hydrOXYzine PAMOATE 50 MG CAPSULE (FP) PO PRN ×3 (09:50→21:29)
[2019-12-08] MEDS: THIAMINE HCL 100 MG TABLET (FP) PO SCH (21:25)
[2019-12-08] MEDS: MELATONIN 5 MG TABLETS PO PRN (21:25)
[2019-12-08] MEDS: SUVOREXANT 10 MG TABLET PO PRN (21:29)
[2019-12-09] MEDS: IBUPROFEN 400 MG TABLET (FP) PO PRN ×2 (06:03→15:11)
[2019-12-09] MEDS: GABAPENTIN 300 MG CAPSULE (FP) PO SCH ×3 (06:04→21:04)
[2019-12-09] MEDS: BACITRACIN 15 GM TUBE TOPICAL OINTMENT TP SCH ×2 (06:04→18:10)
[2019-12-09] MEDS: ACETAMINOPHEN 325 MG TABLET (FP) PO PRN (10:01)
[2019-12-09] MEDS: PRENATAL VITAMINS W/ FOLIC ACID TABLET (FP) PO SCH (10:01)
[2019-12-09] MEDS: hydrOXYzine PAMOATE 50 MG CAPSULE (FP) PO PRN ×2 (10:01→18:30)
[2019-12-09] MEDS: TOLNAFTATE 1% CREAM 15 GM TUBE TP SCH ×2 (10:43→21:05)
[2019-12-09] MEDS: MELATONIN 5 MG TABLETS PO PRN (21:04)
[2019-12-09] MEDS: THIAMINE HCL 100 MG TABLET (FP) PO SCH (21:05)
[2019-12-09] MEDS: SUVOREXANT 10 MG TABLET PO PRN (21:06)
[2019-12-10] MEDS: IBUPROFEN 400 MG TABLET (FP) PO PRN ×2 (06:07→14:54)
[2019-12-10] MEDS: GABAPENTIN 300 MG CAPSULE (FP) PO SCH ×2 (06:07→18:11)
[2019-12-10] MEDS: BACITRACIN 15 GM TUBE TOPICAL OINTMENT TP SCH ×2 (06:08→20:07)
[2019-12-10] MEDS: PRENATAL VITAMINS W/ FOLIC ACID TABLET (FP) PO SCH (09:53)
[2019-12-10] MEDS: ACETAMINOPHEN 325 MG TABLET (FP) PO PRN ×2 (09:53→18:10)
[2019-12-10] MEDS: TOLNAFTATE 1% CREAM 15 GM TUBE TP SCH ×2 (10:02→21:34)
[2019-12-10] MEDS: hydrOXYzine PAMOATE 50 MG CAPSULE (FP) PO PRN (20:06)
[2019-12-10] MEDS: THIAMINE HCL 100 MG TABLET (FP) PO SCH (21:33)
[2019-12-10] MEDS: MELATONIN 5 MG TABLETS PO PRN (21:33)
[2019-12-11] MEDS: GABAPENTIN 300 MG CAPSULE (FP) PO SCH ×3 (06:16→17:35)
[2019-12-11] MEDS: IBUPROFEN 400 MG TABLET (FP) PO PRN ×3 (06:16→21:28)
[2019-12-11] MEDS: BACITRACIN 15 GM TUBE TOPICAL OINTMENT TP SCH ×2 (06:18→18:15)
[2019-12-11] MEDS: ACETAMINOPHEN 325 MG TABLET (FP) PO PRN ×3 (09:51→23:04)
[2019-12-11] MEDS: PRENATAL VITAMINS W/ FOLIC ACID TABLET (FP) PO SCH (09:51)
[2019-12-11] MEDS: TOLNAFTATE 1% CREAM 15 GM TUBE TP SCH ×2 (10:17→21:24)
[2019-12-11] MEDS: hydrOXYzine PAMOATE 50 MG CAPSULE (FP) PO PRN ×2 (16:37→21:25)
[2019-12-11] MEDS: MELATONIN 5 MG TABLETS PO PRN (21:23)
[2019-12-11] MEDS: THIAMINE HCL 100 MG TABLET (FP) PO SCH (21:23)
[2019-12-11] MEDS: SUVOREXANT 10 MG TABLET PO PRN (21:25)
[2019-12-12] MEDS: GABAPENTIN 300 MG CAPSULE (FP) PO SCH ×3 (06:16→17:47)
[2019-12-12] MEDS: IBUPROFEN 400 MG TABLET (FP) PO PRN ×3 (06:16→17:50)
[2019-12-12] MEDS: BACITRACIN 15 GM TUBE TOPICAL OINTMENT TP SCH ×2 (06:17→18:20)
--- NOTE | 2019-12-12 08:47 | PN ---
S Progress Note Note: Patient complains of feeling drowsy by taking Vistaril as currently ordered i.e Vistaril 50 mg po Q 4hrs prn but wants to take 25 mg po Q 4hrs prn and 50 mg/hs
[2019-12-12] MEDS: hydrOXYzine PAMOATE 25 MG CAPSULE (FP) PO PRN ×2 (09:09→16:34)
[2019-12-12] MEDS: ACETAMINOPHEN 325 MG TABLET (FP) PO PRN ×2 (09:10→16:34)
[2019-12-12] MEDS: PRENATAL VITAMINS W/ FOLIC ACID TABLET (FP) PO SCH (09:10)
[2019-12-12] MEDS: TOLNAFTATE 1% CREAM 15 GM TUBE TP SCH ×2 (09:10→21:09)
[2019-12-12] MEDS: MAG HYDROX/AL HYDROX/SIMETH 30 ML UNIT-DOSE CUP PO PRN (17:50)
[2019-12-12] MEDS: THIAMINE HCL 100 MG TABLET (FP) PO SCH (21:07)
[2019-12-12] MEDS: hydrOXYzine PAMOATE 50 MG CAPSULE (FP) PO SCH (21:07)
[2019-12-12] MEDS: MELATONIN 5 MG TABLETS PO PRN (21:07)
[2019-12-12] MEDS: SUVOREXANT 10 MG TABLET PO PRN (21:09)
[2019-12-13] MEDS: IBUPROFEN 400 MG TABLET (FP) PO PRN ×3 (05:57→20:14)
[2019-12-13] MEDS: hydrOXYzine PAMOATE 25 MG CAPSULE (FP) PO PRN ×3 (05:58→14:33)
[2019-12-13] MEDS: GABAPENTIN 300 MG CAPSULE (FP) PO SCH ×3 (05:58→17:42)
[2019-12-13] MEDS: BACITRACIN 15 GM TUBE TOPICAL OINTMENT TP SCH (06:25)
[2019-12-13] MEDS: ACETAMINOPHEN 325 MG TABLET (FP) PO PRN ×3 (10:02→21:53)
[2019-12-13] MEDS: PRENATAL VITAMINS W/ FOLIC ACID TABLET (FP) PO SCH (10:02)
[2019-12-13] MEDS: TOLNAFTATE 1% CREAM 15 GM TUBE TP SCH ×2 (10:04→21:51)
--- NOTE | 2019-12-13 14:24 | PN ---
[facility] Progress Note Note: PATIENT SCHEDULED FOR DISCHARGE TOMORROW MORNING, 12/14/2019. HAS APPT AT [facility] TOMORROW AT 12NOON. PATIENT ENCOURAGED TO CONTINUE WITH GROUP MEETINGS AND OUTPATIENT TREATMENT TO PREVENT REOCCURRENCE. PATIENT TO RETURN TO OUTPATIENT PROGRAM AT [facility] TOMORROW AFTER APPOINTMENT AT [facility]. PATIENT IS MEDICALLY STABLE AT THIS TIME AND DENIES SI/HI. Vital Signs Period Temp Pulse Resp BP Sys/Tsang Pulse Ox Last 24 Hr 98.1 F 97 18-20 145/97 Laboratory Tests 11/29/19 11/30/19 12/03/19 08:36 07:00 08:50 Sodium 140 140 Potassium 4.4 4.5 Chloride 107 107 Carbon Dioxide 26 27 Anion Gap 7 L 7 L BUN 12.3 16.0 Creatinine 0.8 1.0 Est GFR (CKD-EPI)AfAm 118.20 99.15 Est GFR (CKD-EPI)NonAf 101.99 85.55 Random Glucose 84 101 Calcium 9.2 9.0 Total Bilirubin 0.2 AST 105 H 64 H ALT 79 H Alkaline Phosphatase 93 Total Protein 8.4 H Albumin 3.4 Ambulatory Orders Cane 1 each MC DAILY #1 each 12/13/19 Gabapentin 900 mg PO TID #21 capsule 12/13/19
--- NOTE | 2019-12-13 14:45 | PN ---
S Progress Note Note: Patient is scheduled for discharge tomorrow. Script for 30 days supply of Vistaril 50 mg/hs will be electronically transmitted to [facility] at [address] [place] [id number]
[2019-12-13] MEDS: hydrOXYzine PAMOATE 50 MG CAPSULE (FP) PO SCH (21:51)
[2019-12-13] MEDS: MELATONIN 5 MG TABLETS PO PRN (21:51)
[2019-12-13] MEDS: THIAMINE HCL 100 MG TABLET (FP) PO SCH (21:51)
[2019-12-13] MEDS ORDERED: SUVOREXANT 10 MG TABLET PO PRN (22:00)
[2019-12-14] MEDS: hydrOXYzine PAMOATE 25 MG CAPSULE (FP) PO PRN ×2 (05:51→09:41)
[2019-12-14] MEDS: IBUPROFEN 400 MG TABLET (FP) PO PRN (05:51)
[2019-12-14] MEDS: GABAPENTIN 300 MG CAPSULE (FP) PO SCH (05:51)
[2019-12-14 06:47] VITALS: BP 130/96; PULSE 75; TEMP 98.4
--- NOTE | 2019-12-14 09:35 | DS ---
[facility] Rehab Discharge Summary - [facility] Rehab Discharge Summary Admission Date: 11/28/19 Discharge Date: 12/14/19 - History Pertinent Past History: Pt was first admitted to detox- which he completed and then arrived to rehab. Pt states feeling good. Pt HAS APPT AT [facility] TOMORROW AT 12 NOON. Pt had prescriptions sent yesterday- gabapentin, vistaril, f[facility]u [facility] - Discharge Physical Exam Vital Signs: Vital Signs Temperature 98.4 F 12/14/19 06:47 Pulse Rate 75 12/14/19 06:47 Respiratory Rate 18 12/14/19 06:47 Blood Pressure 130/96 12/14/19 06:47 O2 Sat by Pulse Oximetry (%) - Treatment Discharge Condition: Discharge condition good - Medication Discharge Medications: Ambulatory Orders Cane 1 each MC DAILY #1 each 12/13/19 Gabapentin 900 mg PO TID #21 capsule 12/13/19 hydrOXYzine PAMOATE [Vistaril -] 50 mg PO HS #30 capsule 12/13/19 - Medication-Assisted Treatment (MAT) Medication-Assisted Treatment (MAT): No - Discharge Instructions Diet, activity, other medical instructions: Diet: Activity: Other medical instructions: - Follow-up Referral Minutes to complete discharge: 30 - AMA Did Patient Leave Against Medical Advice: No
[2019-12-14] MEDS: PRENATAL VITAMINS W/ FOLIC ACID TABLET (FP) PO SCH (09:39)
[2019-12-14] MEDS: ACETAMINOPHEN 325 MG TABLET (FP) PO PRN (09:40)
== END 2019-12-14 09:44 | disposition home or self-care (01) | DRG 772 ==
LOC: YASAS 17:50 → Y3W 17:51
PROVIDERS: ADMIT Neuromusculoskeletal Medicine & OMM; ATTEND Neuromusculoskeletal Medicine & OMM
PROC: HZ42ZZZ Group Counseling for Substance Abuse Treatment, Cognitive-Behavioral (ICD-10-PCS; principal; 2019-11-27)
DX: F10.20 Alcohol dependence, uncomplicated (principal); F12.20 Cannabis dependence, uncomplicated; F14.10 Cocaine abuse, uncomplicated; F19.280 Other psychoactive substance dependence with psychoactive substance-induced anxiety disorder; F19.282 Other psychoactive substance dependence with psychoactive substance-induced sleep disorder; F51.05 Insomnia due to other mental disorder; Z21 Asymptomatic human immunodeficiency virus [HIV] infection status; L73.1 Pseudofolliculitis barbae; G62.9 Polyneuropathy, unspecified; M54.32 Sciatica, left side; M19.90 Unspecified osteoarthritis, unspecified site; R63.4 Abnormal weight loss; Z91.011 Allergy to milk products; Z59.0 Homelessness
CPT/HCPCS: 36415; 80048; 80053; 84450

== ENCOUNTER 2023-05-21 19:21 | Inpatient (IN) | payer OTHER ==
[2023-05-21 21:43] VITALS: BMI 26.6
[2023-05-21] MEDS ORDERED: MAGNESIUM HYDROX 2400MG/30ML ORAL SUSPENSION 30 ML CUP PO PRN (23:40)
[2023-05-21] MEDS ORDERED: ONDANSETRON *ODT* 4 MG TABLET SL PRN (23:40)
[2023-05-21] MEDS ORDERED: IBUPROFEN 400 MG TABLET (FP) PO PRN (23:40)
[2023-05-21] MEDS ORDERED: BENZOCAINE/MENTHOL (CHLORASEPTIC ) LOZENGE MM PRN (23:40)
[2023-05-21] MEDS ORDERED: BISMUTH SUBSALICYLATE 524 MG/30 ML PO PRN (23:40)
[2023-05-21] MEDS ORDERED: ACETAMINOPHEN 325 MG TABLET (FP) PO PRN (23:40)
[2023-05-21] MEDS ORDERED: BENZONATATE 200 MG CAPSULE PO PRN (23:40)
[2023-05-21] MEDS ORDERED: POLYETHYLENE GLYCOL (HEALTHYLAX) 3350 17 GM PACKET PO PRN (23:40)
[2023-05-21] MEDS ORDERED: DICYCLOMINE HCL 10 MG CAPSULE PO PRN (23:40)
[2023-05-21] MEDS ORDERED: NALOXONE HCL (KLOXXADO) 8 MG SPRAY NS PRN (23:40)
[2023-05-21] MEDS ORDERED: IBUPROFEN 600 MG TABLET (FP) PO PRN (23:40)
[2023-05-21] MEDS ORDERED: MAG HYDROX/AL HYDROX/SIMETH 30 ML UNIT-DOSE CUP PO PRN (23:40)
[2023-05-21] MEDS ORDERED: guaiFENesin 600 MG TABLET.ER (FP) PO PRN (23:40)
[2023-05-21] MEDS ORDERED: METHOCARBAMOL 500 MG TABLET PO PRN (23:40)
[2023-05-21] MEDS ORDERED: NALOXONE HCL 0.4 MG/ML VIAL IM PRN (23:40)
[2023-05-21] MEDS ORDERED: LOPERAMIDE HCL 2 MG CAPSULE PO PRN (23:40)
[2023-05-22] MEDS ORDERED: BICTEGRAV/EMTRICIT/TENOFOV (BIKTARVY) 50-200-25 MG TABLET PO SCH (08:15)
[2023-05-22 09:39] VITALS: BP 126/85; PULSE 87; RESP 16; TEMP 97.8
[2023-05-22] MEDS ORDERED: PRENATAL VITAMINS W/ FOLIC ACID TABLET (FP) PO SCH (10:00)
[2023-05-22 11:43] LABS: HEMATOCRIT 35.3 % (35.4-49); HEMOGLOBIN 11.7 GM/dL (11.7-16.9); MCH 31.4 pg (25.7-33.7); MCHC 33.1 g/dl (32.0-35.9); MEAN CELL VOLUME 95.1 fl (80-96); MEAN PLT VOLUME 8.8 fl (7.5-11.1); PLATELET COUNT 463 10^3/uL (134-434); RBC 3.71 M/mm3 (4.00-5.60); RDW 14.7 % (11.9-15.9); WHITE BLOOD COUNT 7.1 K/mm3 (4.0-10.0)
[2023-05-22 11:47] LABS: POTASSIUM 4.3 mmol/L (3.5-5.1)
[2023-05-22 11:50] LABS: ALBUMIN 3.3 g/dl (3.4-5.0); CALCIUM 9.6 mg/dL (8.5-10.1)
[2023-05-22 11:51] LABS: BLOOD UREA NITROGEN 13.1 mg/dL (7-18)
[2023-05-22 11:54] LABS: CREATININE 0.9 mg/dL (0.55-1.3)
[2023-05-22 11:55] LABS: BILIRUBIN,TOTAL 0.3 mg/dL (0.2-1); TOT PROT 7.6 g/dl (6.4-8.2)
[2023-05-22] MEDS ORDERED: MELATONIN 5 MG TABLETS PO SCH (22:00)
[2023-05-22] MEDS ORDERED: THIAMINE HCL 100 MG TABLET (FP) PO SCH (22:00)
== END 2023-05-22 11:45 | disposition home or self-care (01) | DRG 774 ==
LOC: YASAS 19:21 → Y3N 23:57
PROVIDERS: ADMIT Allergy & Immunology; ATTEND Surgery
PROC: HZ2ZZZZ Detoxification Services for Substance Abuse Treatment (ICD-10-PCS; principal; 2023-05-21)
DX: F10.230 Alcohol dependence with withdrawal, uncomplicated (principal); F14.20 Cocaine dependence, uncomplicated; F12.20 Cannabis dependence, uncomplicated; Z21 Asymptomatic human immunodeficiency virus [HIV] infection status; M54.30 Sciatica, unspecified side
CPT/HCPCS: 36415; 80053; 85027; 86780; 87635